=== PATIENT | male | born 1980 | race Caucasian/White ===

== ENCOUNTER 2019-08-30 22:51 | Emergency (ER) | payer OTHER, SELFPAY ==
[2019-08-30 22:50] VITALS: BP 162/90; PULSE 70; RESP 22; TEMP 36.6; O2SAT 100; BMI 21.8
[2019-08-30] MEDS: MORPHINE 4 MG/ML INJ IV (23:15)
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
[2019-08-30] MEDS: LIDOCAINE 1% W/EPI 30 ML (23:28)
[2019-08-30 23:30] VITALS: BP 152/82; PULSE 89; RESP 12; O2SAT 99
[2019-08-30 23:34] LABS: Add Manual Diff / Slide Review NO; Basophils Absolute Auto 0 /uL (0-100); Basophils Percent Auto 0.7 % (0-2); Eosinophils Absolute Auto 300 /uL (0-450); Eosinophils Percent Auto 4.9 % (2-4); Hematocrit 41.6 % (41-53); Hemoglobin 14.1 g/dL (13.5-17.5); Lymphocytes Absolute Auto 2500 /uL (1100-4500); Lymphocytes Percent Auto 40.2 % (25-40); Mean Corpuscular HGB Conc 33.9 % (30-36); Mean Corpuscular Hemoglobin 29.5 PG (26-34); Mean Corpuscular Volume 87.2 fL (80-100); Monocytes Absolute Auto 700 /uL (0-900); Monocytes Percent Auto 10.7 % (3-14); Neutrophils Absolute Auto 2700 /uL (1500-7000); Neutrophils Percent Auto 43.5 % (50-75); Platelet Count 238 X10^3/uL (150-400); Red Blood Cell Count 4.77 X10^6/uL (4.5-5.9); Red Cell Distribution Width 13.8 % (11.6-14.8); White Blood Cell Count 6.1 X10^3/uL (4.5-11.0)
[2019-08-30 23:38] LABS: BUN Creatinine Ratio 28.1 (6-22); Blood Urea Nitrogen 25 mg/dL (9-20); Calcium 9.2 mg/dL (8.4-10.2); Carbon Dioxide 26 mmol/L (22-32); Chloride 105 mmol/L (98-107); Estimated Glomerular Filt Rate > 60.0 mL/min (>60); Glucose 116 mg/dL (70-100); HEMOLYSIS < 15 (0-50); Potassium 3.9 mmol/L (3.4-5.1); Sodium 137 mmol/L (137-145)
[2019-08-30 23:44] LABS: Ethanol (ETOH) < 10 mg/dL
[2019-08-30 23:50] LABS: Troponin I < 0.012 ng/mL (0.01-0.034)
[2019-08-31] VITALS: BP 140/74; PULSE 82; RESP 15; O2SAT 100
[2019-08-31 00:30] VITALS: BP 147/81; PULSE 94; RESP 14; O2SAT 99
[2019-08-31] MEDS: TET,DIPH,PERTUSS(ACELL),VAC/PF 0.5 ML SYRINGE IM (01:10)
[2019-08-31] MEDS: BACITRACIN OINT 0.9 GM PCKT 5 APPLIC TOP (01:12)
[2019-08-31 02:00] VITALS: BP 138/83; PULSE 79; RESP 13; O2SAT 99
[2019-08-31 02:45] VITALS: BP 138/83; PULSE 79; RESP 13; O2SAT 99
[2019-08-31] MEDS: HYDROCODONE/ACET 5/325 PREPACK 1 BOTTLE MISC (02:51)
== END 2019-08-31 02:45 | disposition home or self-care (01) ==
PROVIDERS: Emergency Provider Emergency Medicine
DX: S01.01XA Laceration without foreign body of scalp, initial encounter (principal); S91.109A Unspecified open wound of unspecified toe(s) without damage to nail, initial encounter; M25.561 Pain in right knee; S40.021A Contusion of right upper arm, initial encounter; S02.2XXA Fracture of nasal bones, initial encounter for closed fracture; V87.7XXA Person injured in collision between other specified motor vehicles (traffic), initial encounter; Z23 Encounter for immunization
CPT/HCPCS: 12005; 36415; 70450; 70486; 71045; 72125; 73630; 80048; 80320; 84484; 85025; 90471; 96374; 99285; 99291; 90715; G0390; J2270

== ENCOUNTER 2023-08-31 09:07 | Emergency (ER) | payer OTHER, SELFPAY ==
[2023-08-31 09:13] VITALS: BP 140/72; PULSE 70; RESP 16; TEMP 36.5; O2SAT 98; BMI 22.4
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
--- NOTE | 2023-08-31 10:16 | DI.RAD.S_ITS ---
PROCEDURE: XR HAND RT MIN 3V INDICATIONS: probable wood FB in hypothenar eminence TECHNIQUE: 3 views of the hand(s) acquired. COMPARISON: None. FINDINGS: Bones: No fractures or dislocations. Carpal bones are normally aligned. No suspicious bony lesions. Soft tissues: No suspicious soft tissue calcifications. No radiodense foreign body. IMPRESSION: No acute bony abnormality. Dictated by: Radha Recinos MD, PhD on 08/31/2023 at 10:50 Approved by: Radha Recinos MD, PhD on 08/31/2023 at 10:50
[2023-08-31 11:20] VITALS: BP 139/72; PULSE 70; RESP 16; O2SAT 98
== END 2023-08-31 11:20 | disposition home or self-care (01) ==
PROVIDERS: Emergency Provider Emergency Medicine
DX: S61.421A Laceration with foreign body of right hand, initial encounter (principal); X58.XXXA Exposure to other specified factors, initial encounter; Y99.0 Civilian activity done for income or pay
CPT/HCPCS: 73130; 99283

== ENCOUNTER 2023-09-01 06:40 | Day surgery (SDC) | payer OTHER, SELFPAY ==
[2023-09-01 06:59] VITALS: BP 137/84; PULSE 68; RESP 17; TEMP 36.8; O2SAT 100; BMI 22.4
[2023-09-01] MEDS: LACTATED RINGERS 1,000 ML 42 ML IV (07:17)
--- NOTE | 2023-09-01 07:32 | P.HP_ITS ---
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 He was seen in the emergency room. They were unable to board although they could find it with ultrasound. Orthopedic consultation was requested [facility] Medical History Patient denies medical problems Social History household members: spouse Smoking Status: Former smoker Meds Home Medications and Allergies Home Medications Medication Instructions Recorded Confirmed Type cephalexin 500 mg capsule 500 mg PO QID 5 days #20 caps 08/31/23 Rx Allergies Allergy/AdvReac Type Severity Reaction Status Date / Time No Known Drug Allergies Allergy Verified 09/01/23 06:58 Review of Systems Review of Systems Narrative: He is otherwise healthy has no other medical problems and is doing reasonably well other than this new injury. He is right-hand dominant. Exam Vital Signs (past 8 hours): - 09/01/23 06:59 Temperature 98.3 F Pulse Rate 68 Respiratory Rate 17 Blood Pressure 137/84 Pulse Oximetry 100 Oxygen Delivery Method Room Air Oxygen Delivery Method Room Air Narrative Exam Narrative: HEENT is benign, lungs are clear cor regular rate and rhythm abdomen soft and benign examination of the right upper extremity shows a laceration at the base of the right thumb it is on the ulnar side of the flexor tendons and in the thenar eminence it does have pain with range of motion, there is slight decreased sensation on the ulnar side of the thumb greater than the radial side of the thumb he is able to fire his [employer] and [employer] to his thumb Objective Labs Labs: X-rays do not show a metallic foreign body there is some slight soft tissue swelling Assessment & Plan Assessment and plan (1) Acute foreign body of right hand: Status: Acute Plan He has a foreign body in his right hand in the base of his thumb. I have recommended exploration of the wound with repair as indicated and removal of the foreign body. Procedure options risks benefits and complications were discussed in detail. 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
[2023-09-01] MEDS: CEFAZOLIN 2 GM/100 ML PREMIX 100 ML IV (07:51)
[2023-09-01] MEDS: ACETAMINOPHEN IV 1,000 MG/100 ML VIAL 400 MG IV (07:56)
--- NOTE | 2023-09-01 08:07 | SUR.OPER ---
Supine on padded OR bed, head on pillow, arms secured on padded arm boards at <90 degrees abduction, legs uncrossed, safety belt at thigh, tape over blanket over lower legs.
[2023-09-01 08:22] VITALS: BP 106/66; PULSE 74; RESP 16; TEMP 36.6; O2SAT 97
[2023-09-01] MEDS: BUPIVACAINE 0.5% (PF) 30 ML VIAL INJ (08:25)
[2023-09-01 08:27] VITALS: BP 106/66; PULSE 74; RESP 15; O2SAT 97
--- NOTE | 2023-09-01 08:27 | PM.OP.1 ---
Operative Date/Time/Diagnoses Date of procedure: 09/01/23 Time of procedure: 08:00 Pre-op diagnosis: Right hand foreign body Post-op diagnosis: same Procedure & Clinicians Procedure: Removal of right hand foreign body. 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 He is brought to the operating room for removal of a foreign body. He was seen in the emergency room and they were unable to remove the foreign body despite exploration. He was brought to the operating room for surgical removal. Surgeon: Ronda Parker Anesthesia Type: General Operative Notes Findings: Deep foreign body proximally 9 by 3 mm Wood consistency Closure Type: primary Specimen(s): none sent Estimated Blood Loss (mL): 5 Blood products transfused: none Tourniquet time (min): 7 Procedure in detail: Patient was brought to the operating room a time-out was performed. He was given IV antibiotics. His right upper extremity was prepped draped standard sterile fashion. Tourniquet was applied and elevated to 250 mmHg. The patient's previous traumatic and emergency room incision was extended slightly. Dissection was carried out through skin and subcutaneous tissues. Deep exploration revealed a would consistency foreign body. It was meticulously removed without difficulty. It was fairly large it was about 9 mm x 3 mm and had the consistency of wood. The wound was irrigated with normal saline. There was no additional debris noted. It did not penetrate the flexor tendon sheath. The wound was closed with interrupted nylon. The wound was dressed sterilely. Complications: none Post-operative Condition: stable Disposition: Acute Care Plan for aftercare: Keep wound dry. Suture removal 7-10 days postoperatively.
[2023-09-01 08:32] VITALS: BP 105/69; PULSE 72; RESP 16; O2SAT 97
[2023-09-01 08:37] VITALS: BP 118/66; PULSE 86; RESP 12; TEMP 36.2; O2SAT 100
[2023-09-01 08:41] VITALS: BP 120/78; PULSE 70; RESP 16; TEMP 36.1; O2SAT 100
== END 2023-09-01 09:02 | disposition home or self-care (01) ==
PROVIDERS: Referring Provider Orthopaedic Surgery; Visit Provider Orthopaedic Surgery
PROC: (CPT 20103; principal; 2023-09-01 07:45)
DX: S61.441A Puncture wound with foreign body of right hand, initial encounter (principal); Y93.H3 Activity, building and construction; Y92.009 Unspecified place in unspecified non-institutional (private) residence as the place of occurrence of the external cause; Y99.0 Civilian activity done for income or pay
CPT/HCPCS: 20103; J0136; J0690; J1100; J2405; J2704; J3010